=== PATIENT | male | born 2000 | race Caucasian/White ===

== ENCOUNTER 2022-04-18 01:38 | Observation (INO) | payer OTHER, SELFPAY ==
[2022-04-18] VITALS (14 sets, daily range): BP systolic 115–135; BP diastolic 58–85; PULSE 63–105; RESP 10–20; TEMP 36.6–37.2; O2SAT 96–100; BMI 21.7
--- NOTE | ~2022-04-18 | CT_ITS ---
EXAMINATION: CT abdomen pelvis w con DATE: 04/18/2022 04:38 INDICATION: Right lower quadrant abdominal pain. TECHNIQUE: Computed tomography (CT) of the abdomen and pelvis was performed with 100 mL Omnipaque 350 intravenous contrast. Automated exposure control and iterative reconstruction technique were employe d. The dose-length product was 237.53 mGy-cm. COMPARISON: None. FINDINGS: The visualized portions of the lung bases are clear without pneumonia or pleural effusion. The heart size is normal. No pericardial effusion. The liver, gallbladder, spleen, pancreas, adrenal glands, and kidneys are normal. The appendix is fluid-filled and dilated to 11 mm with wall thickenin g and surrounding fat stranding, consistent with appendicitis. There are no pathologically enlarged l ymph nodes. There is trace pelvic ascites. The bones are unremarkable. IMPRESSION: 1. Acute appendicitis. Reviewed, dictated and finalized at location A. [facility] IMPRESSION: 1. Acute appendicitis.
[2022-04-18 03:12] LABS: Basophils Percent Auto 0.3 % (0.2-1.2); Eosinophils Percent Auto 0.2 % (0-4.4); Hematocrit 42.6 % (42.0-52.0); Hemoglobin 14.7 g/dL (14.0-18.0); Immature Granulocyte Absolute 0.06 K/mm3 (0.00-0.031); Immature Granulocyte Percent A 0.4 % (0-0.5); Lymphocytes Absolute Auto 1.74 K/mm3 (0.9-3.2); Mean Corpuscular HGB Conc 34.5 g/dl (32-36); Mean Corpuscular Hemoglobin 30.8 pg (26-34); Mean Corpuscular Volume 89.3 fl (80-100); Mean Platelet Volume 10.4 fl (7.4-10.4); Monocytes Absolute Auto 1.5 K/mm3 (0.1-0.6); Neutrophils Absolute Auto 11.1 K/mm3 (1.3-6.7); Neutrophils Percent Auto 77.1 % (45.5-73.1); Platelet Count Result 185 k/mm3 (150-375); Red Blood Count 4.77 M/mm3 (4.6-6.20); Red Cell Distribution Width 12.9 % (11.5-14.5); White Blood Count 14.4 K/mm3 (4.5-10.0)
[2022-04-18 03:13] LABS: Appearance Urine Clear (Clear); Bilirubin Urine 1+ (Negative); Blood Urine Negative (Negative); Color Urine Yellow (Yellow); Glucose Urine UA Negative (Negative); Ketones Urine 2+ mg/dL (Negative); Leukocyte Esterase Ur Negative LEU/UL (Negative); Nitrate Urine Negative (Negative); Protein Urine Negative (Negative); Specific Grav Ur 1.025 (1.001-1.035); Urobilinogen Urine 0.2 mg/dL (<2.0)
--- NOTE | 2022-04-18 03:15 | ED.GENADULT ---
HPI - General Adult General Chief complaint: Abdominal Pain Stated complaint: abd pain,chest pain x 6 hrs Time Seen by Provider: 04/18/22 02:59 History of Present Illness HPI narrative: Patient 21-year-old gentleman who presents emerged department with chief complaint of abdominal pain. The patient states that he started having abdominal discomfort this evening felt as though he did have a bowel movement and about 3 bowel movements today that were all normal the patient states he has had some nausea with this and reports that the pain is worse with movement. The patient states is aching-like pain and also sharp reports is worse with movement of the patient states that whenever he palpates on the left side of his abdomen it hurts in the right lower quadrant. Patient denies fever reports that has not had symptoms like this before reports no prior abdominal surgeries. Related Data Allergies Allergy/AdvReac Type Severity Reaction Status Date / Time No Known Allergies Allergy Verified 04/18/22 03:06 Review of Systems Review of Systems: A 10 system review of systems was completed on the patient and is negative except for what is stated in the HPI. Nursing and ancillary documentation was reviewed. PMFSH Comments History of generalized anxiety disorder Exam Narrative: GENERAL: Well-appearing, well-nourished, and in no acute distress. HEAD: Normocephalic, atraumatic. EYES: PERRLA and EOMI. ENT: Nares clear, no rhinorrhea or epistaxis. Mucous membranes moist. NECK: Supple. CHEST: Clear to auscultation. No respiratory distress. HEART: Regular rate and rhythm. No murmur heard. Normal peripheral pulses. ABDOMEN: Soft, tenderness to palpation of the right lower quadrant, nondistended, normal active bowel sounds. EXTREMITIES: Normal range of motion. No edema. SKIN: Warm, dry, no rash. NEURO: No focal deficits. Alert and oriented x3. PSYCH: Normal mood and affect. Course Vital Signs Vital signs: Vital Signs Temperature 37.1 C 04/18/22 01:45 Pulse Rate 85 04/18/22 01:45 Respiratory Rate 18 04/18/22 01:45 Blood Pressure 135/82 04/18/22 01:45 Pulse Oximetry 100 04/18/22 01:45 Oxygen Delivery Room Air 04/18/22 01:45 Temperature 37.1 C 04/18/22 01:45 Pulse Rate 81 04/18/22 06:38 Respiratory Rate 15 04/18/22 06:38 Blood Pressure 124/85 04/18/22 06:38 Pulse Oximetry 97 04/18/22 06:38 Oxygen Delivery Room Air 04/18/22 01:45 Medical Decision Making Vital Signs Vital Signs: Vital Signs Temperature 37.1 C 04/18/22 01:45 Pulse Rate 85 04/18/22 01:45 Respiratory Rate 18 04/18/22 01:45 Blood Pressure 135/82 04/18/22 01:45 Pulse Oximetry 100 04/18/22 01:45 Oxygen Delivery Room Air 04/18/22 01:45 Temperature 37.1 C 04/18/22 01:45 Pulse Rate 81 04/18/22 06:38 Respiratory Rate 15 04/18/22 06:38 Blood Pressure 124/85 04/18/22 06:38 Pulse Oximetry 97 04/18/22 06:38 Oxygen Delivery Room Air 04/18/22 01:45 Lab Data Result diagrams: 04/18/22 03:03 04/18/22 03:03 Labs: Lab Results 04/18/22 04/18/22 04/18/22 Range/Units 03:03 03:03 03:03 WBC 14.4 H (4.5-10.0) K/mm3 RBC 4.77 (4.6-6.20) M/mm3 Hgb 14.7 (14.0-18.0) g/dL Hct 42.6 (42.0-52.0) % MCV 89.3 (80-100) fl MCH 30.8 (26-34) pg MCHC 34.5 (32-36) g/dl RDW 12.9 (11.5-14.5) % Plt Count 185 (150-375) k/mm3 MPV 10.4 (7.4-10.4) fl Immature Gran % (Auto) 0.4 (0-0.5) % Neut % (Auto) 77.1 H (45.5-73.1) % Lymph % (Auto) 12.0 L (18.3-44.2) % [place] % (Auto) 10.0 H (2.6-8.5) % Eos % (Auto) 0.2 (0-4.4) % Baso % (Auto) 0.3 (0.2-1.2) % Lymph # (Auto) 1.74 (0.9-3.2) K/mm3 [place] # (Auto) 1.5 H (0.1-0.6) K/mm3 Eos # (Auto) 0.0 (0-0.3) K/mm3 Baso # (Auto) 0.0 (0.0-0.1) K/mm3 Abs Immat Gran (auto) 0.06 H (0.00-0.031) K/mm3 Absolute Neuts (auto) 11.1 H (1.3-6.7) K/
[2022-04-18] MEDS: SODIUM CHLORIDE 0.9% IV 1,000 ML 999 ML IV CONT (03:17)
[2022-04-18] MEDS: ONDANSETRON INJ 4 MG/2 ML VIAL IV PUSH (03:17)
[2022-04-18 03:20] LABS: Mucus Urine Rare /lpf; RBC Urine 0-2 /hpf (0-2); Squamous Epithelial Cell Urine Rare /hpf (Few); WBC Urine 0-3 /hpf
[2022-04-18 03:21] LABS: Alanine Aminotransferase 21 U/L (6-50); Alkaline Phosphatase 75 U/L (38-126); Anion Gap 14 mmol/L (8-16); Aspartate Amino Transferase 37 U/L (17-59); Blood Urea Nitrogen 15 mg/dL (9-20); Calcium 9.5 mg/dL (8.4-10.2); Carbon Dioxide 29 mmol/L (22-30); Chloride 98 mmol/L (98-107); Estimated CRCL calculation 109 ml/min; Estimated Glomerular Filt Rate > 60; Glucose 114 mg/dL (65-110); Lipase 12 U/L (23-300); Potassium 3.9 mmol/L (3.4-5.0); Sodium 141 mmol/L (137-145)
[2022-04-18 03:25] LABS: Add Urine Microscopic? YES
--- NOTE | 2022-04-18 04:25 | PC.NURSE ---
Pt to CT scan via stretcher at this time.
[2022-04-18 05:45] LABS: Influenza A QL RT-PCR Negative (Negative); Influenza B QL RT-PCR Negative (Negative); SARS-CoV-2 RNA PCR Negative
[2022-04-18] MEDS: SODIUM CHLORIDE 0.9% IV 1,000 ML 125 ML IV CONT (08:18)
--- NOTE | 2022-04-18 08:39 | ADMGEN ---
This patient, Braden Dean, was admitted to 2 Medical Room 261-01 AT 0805. Patient/family oriented to hospital policies and general routines including ID bracelet, bed and alarms, visiting hours, pain management, procedures, bathroom and other care routines, personal items, smoking policy, room service/diet, and visiting hours. Information on how to activate the Rapid Response Team has been discussed. Patient/Family are encouraged to report perceived risks to care and to ask questions if they do not understand what they are told or what they should do. PT TAKEN PER STRETCHER TO OR AT 0835, REPORT GIVEN TO LYDIA PEREIRA. FATHER WITH PT.
[2022-04-18] MEDS: LACTATED RINGERS 1,000 ML 30 ML IV CONT (08:40)
--- NOTE | 2022-04-18 09:09 | WPDHPUPDATE1 ---
History and Physical Update Update Date/Time: 04/18/22 09:09 History and Physical has been reviewed, including an updated exam of the patient. There are NO changes in the patient's condition. Risks, benefits, and alternatives have been discussed and questions answered. Patient agrees to proceed with procedure.
--- NOTE | 2022-04-18 09:10 | PM.SD2 ---
Same Day Admit/Disch: [facility] History of Present Illness Chief complaint: ACUTE APPENDICITIS Narrative: Braden Dean is a 21 year old male Who began having upper midline abdominal pain yesterday evening. It was not bad at all to begin with. In fact he went on to run a 10 K. after the run, the pain was still there. Over time this pain got worse and moved to the right lower quadrant. He felt as if he could move his bowels it would get better. He did have at least a couple of bowel movements but no relief. He had some nausea but no vomiting. He came to the emergency room and was evaluated. He had tenderness with guarding in the right lower quadrant[place] [id number]. [place] scan showed acute appendicitis. He is taken to surgery now for laparoscopic appendectomy. [facility] Family History Family History Mother Anxiety Social History Social History Smoking status: Never smoker Second hand tobacco smoke exposure: No Alcohol intake: never Substance use: never Lack of Transportation: No Lack of Food: Never True Current Housing: I Have Housing Concerned About Future Housing: No Difficulty Paying Gas/Electric Bills: No Difficulty Paying for Meds: No Currently Unemployed: No Education: High School Diploma/GED Difficulty w/ Childcare or Family Care: No Spiritual care concerns: No Same Day Admit/Disch: Med Pre-admit Medications Home Medications Medication Instructions Recorded Confirmed Type hydrocodone 5 mg-acetaminophen 325 1 - 2 tablet PO Q6H PRN pain #7 04/18/22 Rx mg tablet tabs hydroxyzine HCl 25 mg tablet 25 mg PO HS 04/18/22 04/18/22 History Exam Const: General: comfortable, no acute distress, alert and awake HENMT: Head: normocephalic and atraumatic Mouth: Yes Normal oral and palatal mucosa present Eyes: Conjunctivae: conjunctivae normal Pupils: Equal, round and reactive pupils present EOM: EOMs intact bilaterally Neck: Neck: normal visual inspection, no lymphadenopathy and nontender Resp: Effort & Inspection: normal respiratory effort Auscultation: clear to auscultation bilaterally Cardio: Rate: regular rate Rhythm: regular rhythm Heart sounds: no gallops, no murmurs and no rubs GI: Inspection: normal to inspection, non-distended, scaphoid and no scars GI Palp: Yes abdominal tenderness ( most is in right lower quadrant), Yes Soft to palpation, Yes Tenderness to palpation present (GI) ( both lower quadrants with referred pain to the right lower quadrant), Yes Guarding due to palpation present (GI), No Hepatomegaly present, No Splenomegaly present, No Hernia present and No Palpable mass present Auscultation: Hypoactive bowel sounds present Skin: Lesions: no lesions Rashes: no rashes Neuro: General: no focal motor deficits and CN's II-XI intact bilaterally Cranial nerves: Yes Equal, round and reactive pupils present, Yes Bilaterally intact EOM present, Yes facial symmetry and Yes Midline tongue present Speech: normal speech Motor exam (neuro): 5/5 motor strength present throughout and Motor abnormalities not present Extrem: General: no clubbing, cyanosis or edema and edema Psych: Affect: normal affect Thought process: Normal thought process present Insight: Good insight present (Psych) DS: Data Data Completed and Pending Labs on day of discharge: Labs from last 24 hours 04/18/22 04/18/22 04/18/22 03:03 03:03 03:03 WBC 14.4 H RBC 4.77 Hgb 14.7 Hct 42.6 MCV 89.3 MCH 30.8 MCHC 34.5 RDW 12.9 Plt Count 185 MPV 10.4 Immature Gran % (Auto) 0.4 Neut % (Auto) 77.1 H Lymph % (Auto) 12.0 L [place] % (Auto) 10.0 H Eos % (Auto) 0.2 Baso % (Auto) 0.3 Lymph # (Auto) 1.74 [place] # (Auto) 1.5 H Eos # (Auto) 0.0 Baso # (Auto) 0.0 Abs Immat Gran (auto) 0.06 H Absolute Neuts (auto) 11.
[2022-04-18] MEDS: BUPIVACAINE/EPINEPHRINE 0.25% 50 ML VIAL INFILTRATE (09:37)
--- NOTE | 2022-04-18 10:28 | W.PM.PROC2 ---
Procedure Note - Detailed Date of Procedure 04/18/22 Pre-op Diagnosis ACUTE APPENDICITIS Post-op Diagnosis Same Procedure Performed Laparoscopic appendectomy Surgeon Hever Quintero MD Facilities Locator Janeen ARECHIGA Anesthesia General and Local Indications Patient had mid abdominal pain that moved to the right lower quadrant. The pain was persistent and severe. He came to the emergency room and was noted to have tenderness in the right lower quadrant with guarding. White blood cell count was elevated. CT scan showed acute appendicitis. Findings Acute non perforated appendicitis Description of Procedure Patient was taken to surgery and induced into general anesthesia. The abdomen is prepped draped. Trocars were placed in the usual fashion using 0.25% Marcaine with epinephrine and applied Medical optical trocars. Patient was placed in Trendelenburg with the right-side elevated. The appendix was found fairly easily. It was elevated and the mesoappendix was exposed. Dissection was carried out in the mesoappendix. The appendiceal artery was thoroughly cauterized and divided. The mesoappendix was continued to be divided and eventually the base of the appendix was skeletonized. I ligated the appendix at its base. The appendix was amputated just above the ligature. The mucosa of the appendiceal stump was cauterized. The appendix was placed immediately in an Endo-Catch bag. It was retrieved through the 10 11 left lower quadrant trocar site. We replaced the left lower quadrant trocar reviewed the areas of dissection and the appendiceal stump. All looked good with no evidence of bleeding or other problems. We evacuated CO2 and removed the trocar sleeves. The fascia was closed at the 10 11 trocar site with 0 Vicryl suture. Skin wounds were closed with subcuticular 4-0 Monocryl skin suture. The wounds were dressed with Exofin surgical adhesive. The patient was awakened and taken to recovery in good condition. Sponge needle counts were correct x2. Estimated Blood Loss -5 Drains No Packing No Pathology Yes (Appendix) Complications None Condition Stable Disposition PACU [facility] Billing Surgery - Charge Forward: Surgery Billing (Laparoscopic appendectomy)
--- NOTE | 2022-04-18 11:10 | PC.NURSE ---
Returned from OR via stretcher. Family at bedside.
[2022-04-18] MEDS: ACETAMINOPHEN 500 MG TABLET PO (12:23)
== END 2022-04-18 15:10 | disposition home or self-care (01) ==
LOC: ANHED 07:25 → ANH2MED 08:19
PROVIDERS: Admitting Provider Surgery; Emergency Provider Emergency Medicine; Visit Provider Surgery
PROC: 0DTJ4ZZ Resection of Appendix, Percutaneous Endoscopic Approach (ICD-10-PCS; CPT 44970; principal; 2022-04-18 09:00)
DX: K35.80 Unspecified acute appendicitis (principal); Z20.822 Contact with and (suspected) exposure to COVID-19; Z79.891 Long term (current) use of opiate analgesic; Z79.899 Other long term (current) drug therapy
CPT/HCPCS: 44970; 36415; 74177; 80053; 81001; 83690; 85025; 87636; 88304; 96361; 96365; 96375; 99285; A9270; G0378; J0330; J1100; J2250; J2405; J2543; J2704; J3010; J7030; J7120; Q9967